=== PATIENT | female | born 1995 | race African-American/Black ===

== ENCOUNTER 2018-03-29 12:04 | Emergency (ER) | payer OTHER ==
[~2018-03-29] VITALS: Ht 170.2 cm; Wt 81.6 kg
[~2018-03-29 12:04] MED LIST: FLEXERIL10 MG PO; MOTRIN600 MG PO; NAPROSYN500 MG PO
[2018-03-29 14:08] LABS: HEMATOCRIT 36.3 % (36.0-46.0); HEMOGLOBIN 12.9 G/DL (11.9-15.5); MCH 32.1 PG (29.0-34.0); MCHC 35.5 G/DL (30.0-36.0); MCV 90.3 FL (83-99); PLATELET COUNT 254 K/uL (156-360); RBC DIS.WIDTH-CV 11.6 % (11.8-14.6); RBC DIS.WIDTH-SD 38.3 % (39-53); RED BLOOD COUNT 4.02 M/uL (3.80-5.20); WHITE BLOOD COUNT 8.1 K/uL (4.1-10.2)
[2018-03-29 14:16] LABS: CHLORIDE 104 mEq/L (99-109); POTASSIUM 3.9 mEq/L (3.7-5.4); SODIUM 136 mEq/L (136-147)
[2018-03-29 14:18] LABS: GLUCOSE 78 mg/dL (70-99)
[2018-03-29 14:22] LABS: CREATININE 0.7 mg/dL (0.6-1.3); GFR ESTIMATE (CALCULATED) > 59 mL/min/
[2018-03-29 14:23] LABS: UREA NITROGEN (BUN) 6 mg/dL (9-23)
[2018-03-29] MEDS ORDERED: FLAGYL500 MG PO (15:17)
[2018-03-29 15:29] VITALS: BP 104/57
[2018-03-30] MEDS ORDERED: TYLENOL EXTRA500 MG PO (16:47)
[2018-03-30] MEDS ORDERED: FLAGYL500 MG PO (16:47)
[2018-03-30] MEDS ORDERED: INHALER (16:58)
== END 2018-03-29 15:30 | disposition home or self-care (01) ==
LOC: EME 12:04
PROVIDERS: Nurse Practitioner Family
DX: O02.1 Missed abortion (principal)
CPT/HCPCS: 76801; 80048; 84702; 85027; 99281; 99284

== ENCOUNTER 2018-03-31 10:40 | Day surgery (SDC) | payer OTHER ==
[~2018-03-31] VITALS: Ht 170.2 cm; Wt 85.7 kg
[~2018-03-31 10:40] MED LIST changes: +FLAGYL500 MG PO; +INHALER; +TYLENOL EXTRA500 MG PO
[2018-03-31 11:46] LABS: BASOPHIL (%) 0.3 % (0-1); EOSINOPHIL (%) 0.8 % (0-5); EOSINOPHIL COUNT 0.1 K/uL (0-0.3); HEMATOCRIT 38.1 % (36.0-46.0); IMMATURE GRANULOCYTE (%) 0.3 % (0.0-0.7); LYMPHOCYTE (%) 37.5 % (15-42); LYMPHOCYTE COUNT 2.4 K/uL (1.0-2.8); MCH 31.7 PG (29.0-34.0); MCHC 34.1 G/DL (30.0-36.0); MCV 92.9 FL (83-99); MONOCYTE (%) 6.6 % (3-12); MONOCYTE COUNT 0.4 K/uL (0-0.8); NEUTROPHIL (%) 54.5 % (45-76); NEUTROPHIL COUNT 3.4 K/uL (1.8-6.4); RBC DIS.WIDTH-CV 11.9 % (11.8-14.6); RBC DIS.WIDTH-SD 40.4 % (39-53); WHITE BLOOD COUNT 6.3 K/uL (4.1-10.2)
[2018-03-31 11:49] VITALS: BP 109/60
[2018-03-31 12:16] LABS: PLAT.SUFFICIENCY ADEQUATE; PLATELET COUNT 183 K/uL (156-360)
[2018-03-31] MEDS ORDERED: IBUPROFEN800 MG PO (14:09)
[2018-03-31] MEDS ORDERED: DOXYCYCLINE MO100 M1 PO (14:09)
[2018-03-31 15:42] VITALS: BP 108/69
[2018-03-31 16:40] VITALS: BP 128/63
== END 2018-03-31 17:00 | disposition home or self-care (01) ==
LOC: SDC 10:40
PROVIDERS: Obstetrics & Gynecology
PROC: 10D17ZZ Extraction of Products of Conception, Retained, Via Natural or Artificial Opening (ICD-10-PCS; principal; 2018-03-31)
DX: O02.1 Missed abortion (principal); Z3A.09 9 weeks gestation of pregnancy; Z87.891 Personal history of nicotine dependence
CPT/HCPCS: 85025; 86850; 86900; 86901; J1100; J1885; J2250; J2405; J3010